=== PATIENT | female | born 1945 | race Caucasian/White ===

== ENCOUNTER 2016-10-29 10:02 | Emergency (ER) | payer MEDICARE, OTHER ==
[2016-10-29 11:03] VITALS: BP 167/75
[2016-10-29] MEDS ORDERED: GI Cocktail Oral Solution 30 ML PO ONE (11:03)
--- NOTE | 2016-10-29 11:24 | EDM.PDOC ---
ED HPI GENERAL MEDICAL PROBLEM - General Chief Complaint: General Stated Complaint: short of breath, sweaty Time Seen by Provider: 10/29/16 10:28 Source of Information: Reports: Patient History Limitations: Reports: No Limitations - History of Present Illness INITIAL COMMENTS - FREE TEXT/NARRATIVE: Patient reports SOB and becoming sweaty while walking to her car from her apartment. She has history of 2 stents placed 4 years ago. She also complains of back and shoulder pain, both are reported to be chronic. She reports this pain to have been at 0830 this morning. Denies history of smoking, alcohol or drug use. Denies history of MA, stroke, COPD, asthma, cancer. No diabetes. Has hypothyroidism, hypercholesterolemia, HTN, anxiety. She denies headache, no chest pain, no nausea/vomiting. No stroke complaints. No longer having any symptoms. Onset: Today Onset Date: 10/29/16 Onset Time: 08:30 Duration: Resolved Prior to Arrival Associated Symptoms: Reports: Diaphoresis, Shortness of Breath Middle Back Pain Score (Numeric/FACES): 3 - Related Data Allergies Allergy/AdvReac Type Severity Reaction Status Date / Time chlorzoxazone Allergy Swelling Verified 10/29/16 10:53 [From Parafon Forte] erythromycin base Allergy Abdominal Verified 10/29/16 10:53 [Erythromycin Base] Pain Home Meds: Home Meds Aspirin [Elvie Chewable] 81 mg PO DAILY 02/21/14 [History] Cholecalciferol (Vitamin D3) [Vitamin D] 2,000 unit PO DAILY 02/21/14 [History] Fexofenadine [Lorna] 30 mg PO BEDTIME 02/21/14 [History] Isosorbide Dinitrate [Isosorbide Dinitrate] 30 mg PO DAILY 02/21/14 [History] Losartan [Cozaar] 25 mg PO DAILY 02/21/14 [History] Metoprolol Succinate [Toprol XL] 25 mg PO DAILY 02/21/14 [History] Rosuvastatin Calcium [Crestor] 20 mg PO DAILY 02/21/14 [History] Nitroglycerin [IJP: Nitroglycerin] 0.4 mg SL ASDIRECTED PRN 07/24/16 [History] Past Medical History Cardiovascular History: Reports: Stents 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: Other (See Below) 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 - Past Surgical History HEENT Surgical History: Reports: Adenoidectomy, Tonsillectomy Female Surgical History: Reports: Hysterectomy Social & Family History - Tobacco Use Smoking Status *Q: Never Smoker - Alcohol Use Days Per Week of Alcohol Use: 0 - Recreational Drug Use Recreational Drug Use: No - Living Situation & Occupation Living situation: Reports: , with Family Occupation: Retired ED ROS GENERAL - Review of Systems Review Of Systems: See Below Constitutional: Reports: Diaphoresis HEENT: Reports: No Symptoms Respiratory: Reports: Shortness of Breath Cardiovascular: Reports: Other (chest pressure) Endocrine: Reports: No Symptoms GI/Abdominal: Reports: No Symptoms : Reports: No Symptoms Musculoskeletal: Reports: No Symptoms Skin: Reports: No Symptoms Neurological: Reports: No Symptoms Psychiatric: Reports: Anxiety Hematologic/Lymphatic: Reports: No Symptoms Immunologic: Reports: No Symptoms ED EXAM, GENERAL - Physical Exam Exam: See Below Exam Limited By: No Limitations General Appearance: Alert, WD/WN, No Apparent Distress Eye Exam: Bilateral Eye: EOMI, PERRL Ears: Hearing Grossly Normal, Normal TMs Nose: Normal Inspection Throat/Mouth: Normal Inspection, Normal Oropharynx Head: Atraumatic, Normocephalic Neck: Normal Inspection, Supple, Non-Tender, Full Range of Motion Respiratory/Chest: No Respiratory Distress, Lungs Clear, Normal Breath Sounds, No Accessory Muscle Use, Chest Non-Tender Cardiovascular: Normal Peripheral Pulses, Regular Rate, Rhythm, No Murmur Peripheral Pulses: 2+: Carotid (L), Carotid (R), Posterior Tibial (L), Posterior Tibial (R), Dorsalis Pedis (L), Dorsalis Pedis (R) Back Exam: Normal Inspection Extremities: Normal Inspection, Normal Range of Motion, Non-Tender, No Pedal Edema, Normal Capillary Refill Neurological: Alert, Oriented, CN II-XII Intact, Normal Cognition, Normal Gait, Normal Reflexes, No Motor/Sensory Deficits Psychiatric: Normal Affect, Normal Mood Skin Exam: Warm, Dry, Intact, Normal Color Lymphatic: No Adenopathy Course - Vital Signs Last Recorded V/S: Last Vital Signs Temp 36.1 C 10/29/16 10:04 Pulse 68 10/29/16 10:04 Resp 16 10/29/16 10:04 BP 167/75 H 10/29/16 10:04 Pulse Ox 95 10/29/16 10:04 - Orders/Labs/Meds Orders: Active Orders 24 hr Category Date Time Status Chest 1V Frontal [CR] Stat Exams 10/29/16 10:30 Ordered B-TYPE NATRIURETIC PEPTIDE,BNP [CHEM] Stat Lab 10/29/16 10:29 Ordered CK W CKMB [CHEM] Stat Lab 10/29/16 10:29 Ordered COMPREHENSIVE METABOLIC PN,CMP [CHEM] Stat Lab 10/29/16 10:29 Ordered D Dimer [D-DIMER QUANTITATIVE] [COAG] Stat Lab 10/29/16 10:29 Ordered INR,PT,PROTHROMBIN TIME [COAG] Stat Lab 10/29/16 10:29 Ordered MAGNESIUM [CHEM] Stat Lab 10/29/16 11:06 Ordered TROPONIN I [CHEM] Stat Lab 10/29/16 10:29 Ordered TSH ULTRASENSITIVE [CHEM] Stat Lab 10/29/16 10:44 Ordered Labs: Laboratory Tests 10/29/16 Range/Units 10:42 WBC 5.4 (4.0-10.0) x10^3/uL RBC 4.04 (4.00-5.50) x10^6/uL Hgb 12.2 (12.0-16.0) g/dL Hct 36.5 (33.0-47.0) % MCV 90.3 (78.0-93.0) fL MCH 30.2 (26.0-32.0) pg MCHC 33.4 (32.0-36.0) g/dL RDW Coeff of Rebeca 14.2 (10.0-15.0) % Plt Count 165 (130-400) x10^3/uL Neut % (Auto) 65.3 (50.0-80.0) % Lymph % (Auto) 24.0 L (25.0-50.0) % [place] % (Auto) 8.8 (2.0-11.0) % Eos % (Auto) 1.5 (0.0-4.0) % Baso % (Auto) 0.4 (0.2-1.2) % Meds: Medications Discontinued Medications Generic Name Dose Route Start Last Admin Trade Name Freq PRN Reason Stop Dose Admin Al Hydroxide/Mg Hydroxide 30 ml 10/29/16 11:03 10/29/16 11:18 Gi Cocktail PO 10/29/16 11:04 30 ml ONETIME ONE Administration Departure - Departure Time of Disposition: 12:20 Disposition: Home, Self-Care 01 Condition: good Clinical Impression: Chronotropic incompetence, Left bundle branch block (LBBB) on electrocardiogram - Discharge Information Forms: ED Department Discharge Additional Instructions: Keep your appointment with your primary tomorrow and have her review with you some of the things that did happen today. Also keep your appointment with your [facility] operator. Depending on how aggressive they are, they may want to do another stress test or echocardiogram. It does sound like this is a somewhat chronic condition for you so they may not decide to do this. You may have what is called chronotropic incompetence. This may also be something that they may want to investigate further. Please follow up with your primary as needed. Please call us with any questions or concerns - Problem List & Annotations (1) Chronotropic incompetence SNOMED Code(s): 250887001 Code(s): I45.89 - OTHER SPECIFIED CONDUCTION DISORDERS Status: Acute Priority: Low Current Visit: Yes (2) Left bundle branch block (LBBB) on electrocardiogram SNOMED Code(s): 619676386 Code(s): I44.7 - LEFT BUNDLE-BRANCH BLOCK, UNSPECIFIED Status: Acute Priority: Low Current Visit: Yes - My Orders Last 24 Hours: My Active Orders 10/29/16 10:29 B-TYPE NATRIURETIC PEPTIDE,BNP [CHEM] Stat CK W CKMB [CHEM] Stat COMPREHENSIVE METABOLIC PN,CMP [CHEM] Stat D Dimer [D-DIMER QUANTITATIVE] [COAG] Stat INR,PT,PROTHROMBIN TIME [COAG] Stat TROPONIN I [CHEM] Stat 10/29/16 10:30 Chest 1V Frontal [CR] Stat 10/29/16 10:44 TSH ULTRASENSITIVE [CHEM] Stat 10/29/16 11:06 MAGNESIUM [CHEM] Stat - Assessment/Plan Last 24 Hours: My Active Orders 10/29/16 10:29 B-TYPE NATRIURETIC PEPTIDE,BNP [CHEM] Stat CK W CKMB [CHEM] Stat COMPREHENSIVE METABOLIC PN,CMP [CHEM] Stat D Dimer [D-DIMER QUANTITATIVE] [COAG] Stat INR,PT,PROTHROMBIN TIME [COAG] Stat TROPONIN I [CHEM] Stat 10/29/16 10:30 Chest 1V Frontal [CR] Stat 10/29/16 10:44 TSH ULTRASENSITIVE [CHEM] Stat 10/29/16 11:06 MAGNESIUM [CHEM] Stat Assessment:: Left bundle branch block on EKG Chronotropic incompetence Plan: Keep your appointment with your primary tomorrow and have her review with you some of the things that did happen today. Also keep your appointment with your [facility] operator. Depending on how aggressive they are, they may want to do another stress test or echocardiogram. It does sound like this is a somewhat chronic condition for you so they may not decide to do this. You may have what is called chronotropic incompetence. This may also be something that they may want to investigate further. Please follow up with your primary as needed. Please call us with any questions or concerns
[2016-10-29 11:40] LABS: CHLORIDE,CL 106 mmol/L (98-107); SODIUM,NA 144 mmol/L (136-145)
== END 2016-10-29 12:30 | disposition home or self-care (01) ==
LOC: VM.ED 10:02
DX: I45.89 Other specified conduction disorders (principal); I44.7 Left bundle-branch block, unspecified; Z88.1 Allergy status to other antibiotic agents; Z88.8 Allergy status to other drugs, medicaments and biological substances; Z79.82 Long term (current) use of aspirin; Z79.899 Other long term (current) drug therapy; Z90.710 Acquired absence of both cervix and uterus; Z98.890 Other specified postprocedural states
CPT/HCPCS: 36415; 71010; 80053; 82550; 82553; 83735; 83880; 84443; 84484; 85025; 85379; 85610; 93005; 99284; A9270; 99283-GF